=== PATIENT | female | born 1970 | race Caucasian/White ===

== ENCOUNTER 2017-12-20 08:29 | Outpatient (CLI) | payer OTHER ==
[2017-12-20 09:04] LABS: BASOPHILS # (AUTO) 0.1 X10'3 (0-0.2); BASOPHILS % (AUTO) 0.9 % (0-1); EOSINOPHILS # (AUTO) 0.4 X10'3 (0-0.9); EOSINOPHILS % (AUTO) 6.2 % (0-6); HEMATOCRIT 32.4 % (35.0-45.0); HEMOGLOBIN 10.3 g/dl (12.0-16.0); LYMPHOCYTES # (AUTO) 1.8 X10'3 (1.1-4.8); LYMPHOCYTES % (AUTO) 30.1 % (21-51); MEAN CORPUSCULAR HEMOGLOBIN 22.1 PG (27.0-31.0); MEAN CORPUSCULAR HGB CONC 31.7 % (33.0-36.5); MEAN CORPUSCULAR VOLUME 69.8 FL (78-98); MEAN PLATELET VOLUME 7.4 FL (7.4-10.4); MONOCYTES # (AUTO) 0.5 X10'3 (0-0.9); MONOCYTES % (AUTO) 7.6 % (2-12); NEUTROPHILS # (AUTO) 3.3 X10'3 (1.8-7.7); NEUTROPHILS % (AUTO) 55.2 % (42-75); PLATELET COUNT 409 X10'3 (140-440); RED BLOOD COUNT 4.64 X10'6 (4.20-5.60); RED CELL DISTRIBUTION WIDTH 15.7 % (11.5-14.5)
[2017-12-20 09:25] LABS: CLARITY,URINE CLEAR (Clear); COLOR,URINE YELLOW (Yellow); GLUCOSE, URINE NEGATIVE (Neg); KETONES,URINE NEGATIVE (Neg); LEUKOCYTE ESTERASE ,URINE NEGATIVE (Neg); NITRITES, URINE NEGATIVE (Neg); OCCULT BLOOD,URINE NEGATIVE (Neg); PH,URINE 6.5 (4.8-8.0); PROTEIN,URINE NEGATIVE (Neg); UROBILINOGEN,URINE 0.2 E.U/dL (0.2-1.0)
[2017-12-20 09:28] LABS: ALANINE AMINOTRANSFERASE 27 U/L (12-78); ALBUMIN 3.8 G/DL (3.4-5.0); ALBUMIN/GLOBULIN RATIO 1.1 (1.1-1.5); ALKALINE PHOSPHATASE 89 IU/L (46-116); ANION GAP 9 (8-16); ASPARTATE AMINO TRANSFERASE 24 U/L (10-37); BILIRUBIN,TOTAL 0.3 MG/DL (0.1-1.0); BLOOD UREA NITROGEN 10 MG/DL (7-18); BUN/CREATININE RATIO 12.3 (6.6-38.0); CALCIUM 9.2 MG/DL (8.5-10.1); CHLORIDE 98 MMOL/L (99-107); CHOLESTEROL 240 MG/DL (0-200); CREATININE 0.81 MG/DL (0.40-0.90); GLUCOSE 93 MG/DL (70-104); HDL CHOLESTEROL 80 MG/DL (35-60); LDL CHOLESTEROL 143 MG/DL (50-100); POTASSIUM 4.4 MMOL/L (3.5-5.1); SODIUM 132 MMOL/L (135-145); TOTAL CARBON DIOXIDE 24.6 MMOL/L (24-32); TOTAL PROTEIN 7.3 G/DL (6.4-8.2); TRIGLYCERIDES 106 MG/DL (20-135); eGFR 76 ML/MIN
[2017-12-20 09:29] LABS: UA COLLECTION TYPE CLN CATCH MIDSTREAM
[2017-12-20 09:41] LABS: HYPOCHROMASIA 1+; MICROCYTOSIS 2+; PLATELET ESTIMATE NORMAL; POIKILOCYTOSIS 1+
[2017-12-20 09:52] LABS: % IRON SATURATION 4 % (11-46); IRON 17 UG/DL (49-151); TOTAL IRON BINDING CAPACITY 450 UG/DL (259-388)
[2017-12-21 06:17] LABS: VITAMIN D, 25-HYDROXY 25.3 ng/mL (30.0-100.0)
== END 2017-12-20 23:59 | disposition home or self-care (01) ==
LOC: LAB 08:29
PROVIDERS: ATTEND Family Medicine
DX: R53.83 Other fatigue (principal); D50.9 Iron deficiency anemia, unspecified; Z98.84 Bariatric surgery status; Z87.891 Personal history of nicotine dependence
CPT/HCPCS: 36415; 80053; 80061; 81003; 82306; 82607; 82746; 83540; 83550; 84439; 84443; 85025

== ENCOUNTER 2018-05-03 19:36 | Emergency (ER) | payer OTHER ==
[~2018-05-03] VITALS: Ht 180.3 cm; Wt 94.0 kg
[2018-05-03] MEDS: acetaminophen 325mg tablet PO ONE (20:32)
[2018-05-03] MEDS: ibuprofen tablet 400 MG TABLET PO ONE (20:58)
[2018-05-03] MEDS: albuterol 2.5 MG/3 ML nebule NEB ONE (21:03)
[2018-05-03] MEDS ORDERED: TAM75C PO (21:06)
[2018-05-03] MEDS ORDERED: BENZ-16 PO (21:27)
[2018-05-03 21:41] VITALS: BP 143/88
== END 2018-05-03 21:42 | disposition home or self-care (01) ==
LOC: ER 19:37
DX: B34.9 Viral infection, unspecified (principal); R07.89 Other chest pain; Z88.8 Allergy status to other drugs, medicaments and biological substances; Z79.899 Other long term (current) drug therapy; Z90.710 Acquired absence of both cervix and uterus
CPT/HCPCS: 71045; 87502; 87503; 94640; 94760; 99284

== ENCOUNTER 2018-05-12 11:10 | Outpatient (CLI) | payer OTHER ==
[~2018-05-12 11:10] MED LIST: BENZ-16 PO
[2018-05-12 11:58] LABS: BASOPHILS % (AUTO) 0.3 % (0-1); EOSINOPHILS # (AUTO) 0.2 X10'3 (0-0.9); EOSINOPHILS % (AUTO) 1.9 % (0-6); HEMOGLOBIN 9.1 g/dl (12.0-16.0); LYMPHOCYTES # (AUTO) 2.2 X10'3 (1.1-4.8); LYMPHOCYTES % (AUTO) 22.7 % (21-51); MEAN CORPUSCULAR HEMOGLOBIN 19.9 PG (27.0-31.0); MEAN CORPUSCULAR HGB CONC 30.5 % (33.0-36.5); MEAN CORPUSCULAR VOLUME 65.2 FL (78-98); MEAN PLATELET VOLUME 7.6 FL (7.4-10.4); MONOCYTES # (AUTO) 0.9 X10'3 (0-0.9); MONOCYTES % (AUTO) 8.8 % (2-12); NEUTROPHILS # (AUTO) 6.4 X10'3 (1.8-7.7); NEUTROPHILS % (AUTO) 66.3 % (42-75); PLATELET COUNT 502 X10'3 (140-440); RED BLOOD COUNT 4.59 X10'6 (4.20-5.60); RED CELL DISTRIBUTION WIDTH 18.1 % (11.5-14.5); WHITE BLOOD COUNT 9.7 X10'3 (4.5-11.0)
[2018-05-12 12:16] LABS: CLARITY,URINE SLIGHTLY CLOUDY (Clear); COLOR,URINE YELLOW (Yellow); GLUCOSE, URINE NEGATIVE (Neg); KETONES,URINE NEGATIVE (Neg); LEUKOCYTE ESTERASE ,URINE NEGATIVE (Neg); NITRITES, URINE NEGATIVE (Neg); OCCULT BLOOD,URINE NEGATIVE (Neg); PROTEIN,URINE NEGATIVE (Neg); UROBILINOGEN,URINE 0.2 E.U/dL (0.2-1.0)
[2018-05-12 12:18] LABS: UA COLLECTION TYPE CLN CATCH MIDSTREAM
[2018-05-12 12:23] LABS: BACTERIA,URINE 1+ /HPF (Neg); MUCUS STRANDS FEW /LPF (Neg); SQUAMOUS EPITHELIAL CELL,UR FEW /LPF (FEW)
[2018-05-12 12:24] LABS: RBC,URINE 0-2 /HPF (0-2); WBC,URINE 0-4 /HPF (0-4)
[2018-05-12 12:26] LABS: ALANINE AMINOTRANSFERASE 23 U/L (12-78); ALBUMIN 3.4 G/DL (3.4-5.0); ALBUMIN/GLOBULIN RATIO 0.9 (1.1-1.5); ALKALINE PHOSPHATASE 99 IU/L (46-116); ANION GAP 8 (8-16); ASPARTATE AMINO TRANSFERASE 17 U/L (10-37); BILIRUBIN,TOTAL 0.2 MG/DL (0.1-1.0); BLOOD UREA NITROGEN 11 MG/DL (7-18); BUN/CREATININE RATIO 12.5 (6.6-38.0); CALCIUM 8.8 MG/DL (8.5-10.1); CHLORIDE 99 MMOL/L (99-107); CHOLESTEROL 177 MG/DL (0-200); CREATININE 0.88 MG/DL (0.40-0.90); GLUCOSE 92 MG/DL (70-104); HDL CHOLESTEROL 59 MG/DL (35-60); LDL CHOLESTEROL 107 MG/DL (50-100); POTASSIUM 4.3 MMOL/L (3.5-5.1); SODIUM 134 MMOL/L (135-145); TOTAL CARBON DIOXIDE 26.7 MMOL/L (24-32); TOTAL PROTEIN 7.4 G/DL (6.4-8.2); TRIGLYCERIDES 69 MG/DL (20-135); eGFR 69 ML/MIN
[2018-05-12 12:50] LABS: % IRON SATURATION 3 % (11-46); IRON 13 UG/DL (49-151); TOTAL IRON BINDING CAPACITY 390 UG/DL (259-388)
[2018-05-12 13:27] LABS: TOTAL CELLS COUNTED 100
[2018-05-12 13:28] LABS: ANISOCYTOSIS 2+; PLATELET ESTIMATE INCREASED
[2018-05-12 13:29] LABS: ELLIPTOCYTES FEW; HYPOCHROMASIA 1+; MICROCYTOSIS 2+
[2018-05-13] MEDS ORDERED: DUPI200S INJ (08:08)
[2018-05-13] MEDS ORDERED: FLUO40CA10 PO (08:08)
== END 2018-05-12 23:59 | disposition home or self-care (01) ==
LOC: LAB 11:10
PROVIDERS: ATTEND Family Medicine
DX: D50.9 Iron deficiency anemia, unspecified (principal); R53.83 Other fatigue; Z98.84 Bariatric surgery status; Z87.891 Personal history of nicotine dependence; Z88.8 Allergy status to other drugs, medicaments and biological substances
CPT/HCPCS: 36415; 80053; 80061; 81001; 82607; 82746; 83540; 83550; 84439; 84443; 85025

== ENCOUNTER 2018-05-13 07:30 | Day surgery (SDC) | payer OTHER ==
[~2018-05-13] VITALS: Ht 177.8 cm; Wt 93.9 kg
[2018-05-13] MEDS ORDERED: FLUO40CA10 PO (08:08)
[2018-05-13] MEDS ORDERED: DUPI200S INJ (08:08)
[2018-05-13] MEDS ORDERED: iron dextran complex inj. 25 MG in normal saline 50ml IV soln 49.5 ML IV ONE (08:30)
[2018-05-13 09:00] VITALS: BP 124/70
[2018-05-13 09:06] VITALS: BP 118/61
[2018-05-13] MEDS ORDERED: IRON DEXTRAN COMPLEX IV ONE (09:30)
[2018-05-13] MEDS ORDERED: NORMAL SALINE IV ONE (09:30)
[2018-05-13 10:07] VITALS: BP 122/73
[2018-05-13 11:06] VITALS: BP 115/51
[2018-05-13 12:06] VITALS: BP 129/82
[2018-05-13 13:06] VITALS: BP 128/75
--- NOTE | 2018-05-13 13:30 | NUR ---
INFUSION COMPLETE. VITALS STABLE. IV DC'D, CANNULA INTACT. PT DISCHARGED HOME WITH ALL BELONGINGS.
== END 2018-05-13 13:30 | disposition home or self-care (01) ==
LOC: SSTAY O 07:30
PROVIDERS: ATTEND Family Medicine
DX: D50.9 Iron deficiency anemia, unspecified (principal); F32.9 Major depressive disorder, single episode, unspecified; Z87.39 Personal history of other diseases of the musculoskeletal system and connective tissue; Z87.2 Personal history of diseases of the skin and subcutaneous tissue; Z87.891 Personal history of nicotine dependence; Z98.84 Bariatric surgery status; Z79.899 Other long term (current) drug therapy; Z88.8 Allergy status to other drugs, medicaments and biological substances; Z98.890 Other specified postprocedural states
CPT/HCPCS: 36415; J1750; J7030; J7040